=== PATIENT | male | born 1985 | race Caucasian/White ===

== ENCOUNTER 2016-10-07 07:12 | Emergency (ER) | payer BC ==
[2016-10-07] MEDS ORDERED: Sodium Chloride 0.9% 1,000 ML IV ONE (07:42)
[2016-10-07] MEDS ORDERED: Sodium Chloride 0.9% 1,000 ML ONE (07:47)
[2016-10-07 07:57] LABS: BASO % 0.6 % (0.0-2.0); EOS # 0.2 K/uL (0.0-0.7); EOS % 2.3 % (0.0-4.0); HEMOGLOBIN 14.5 g/dL (12.0-18.0); LYMPH # 2.3 K/uL (1.0-4.3); LYMPH % 29.1 % (20.0-40.0); MEAN CELL VOLUME 86.9 fL (80.0-94.0); MEAN CORPUSCULAR HGB CONC 33.4 g/dL (33.0-37.0); MEAN PLATELET VOLUME 9.4 fL (7.2-11.7); MONO # 0.7 K/uL (0.0-0.8); MONO % 8.8 % (0.0-10.0); NEUT # 4.6 K/uL (1.8-7.0); NEUT % 59.2 % (50.0-75.0); RBC 4.98 Mil/uL (4.40-5.90); WHITE BLOOD COUNT 7.8 K/uL (4.8-10.8)
[2016-10-07 08:04] LABS: ALBUMIN 4.1 g/dL (3.5-5.0)
[2016-10-07 08:06] LABS: GFR AFRICAN-AMERICAN > 60; GFR NON-AFRICAN AMERICAN > 60
[2016-10-07 08:07] LABS: ALB/GLOB RATIO 1.3 (1.0-2.1); ALT/SGPT 14 U/L (21-72); AST/SGOT 18 U/L (17-59); BLOOD UREA NITROGEN 12 mg/dL (9-20); CALCIUM 8.9 mg/dl (8.6-10.4); LIPASE 80 U/L (23-300)
--- NOTE | 2016-10-07 08:23 | C.PDOC ---
History Of Present Illness 31 y/o male presents to the ED for evaluation of constant, non-radiating right flank pain associated with nausea, and vomiting since this morning at 5:00. Pt reports having similar symptoms in the past when he was diagnosed with a kidney stone. Otherwise, patient denies fever, hematuria/dysuria, diarrhea, abdominal pain. Time Seen by Provider: 10/07/16 07:21 Chief Complaint (Nursing): Back Pain History Per: Patient History/Exam Limitations: no limitations Onset/Duration Of Symptoms: Hrs (3), Persistent Current Symptoms Are (Timing): Still Present Quality Of Discomfort: "Pain" Severity: Moderate Associated Symptoms: None. denies: Incontinence, New Weakness, New Numbness Exacerbating Factor(s): Nothing Additional History Per: Patient Past Medical History Reviewed: Historical Data, Nursing Documentation, Vital Signs Vital Signs: Last Vital Signs Temp 97.5 F L 10/07/16 07:18 Pulse 72 10/07/16 10:00 Resp 16 10/07/16 10:00 BP 102/68 10/07/16 10:00 Pulse Ox 98 10/07/16 10:00 - Medical History PMH: No Chronic Diseases Surgical History: Appendectomy Family History: States: No Known Family Hx - Social History Hx Alcohol Use: Yes Hx Substance Use: No - Immunization History Hx Tetanus Toxoid Vaccination: No Hx Influenza Vaccination: Yes Hx Pneumococcal Vaccination: No Review Of Systems Except As Marked, All Systems Reviewed And Found Negative. Constitutional: Negative for: Fever, Chills Cardiovascular: Negative for: Chest Pain, Palpitations Respiratory: Negative for: Cough, Shortness of Breath Gastrointestinal: Positive for: Nausea, Vomiting. Negative for: Diarrhea, Constipation Genitourinary: Negative for: Dysuria, Frequency, Hematuria Musculoskeletal: Positive for: Back Pain (right flank) Physical Exam - Physical Exam Appears: Well, Non-toxic, Other (In moderate painf, restless, uncomfortable) Skin: Normal Color, Warm, Dry Head: Normacephalic Eye(s): bilateral: Normal Inspection Oral Mucosa: Moist Neck: Supple Cardiovascular: Rhythm Regular, Murmur Respiratory: Normal Breath Sounds, No Accessory Muscle Use, No Rales, No Rhonchi , No Wheezing Gastrointestinal/Abdominal: Bowel Sounds, Soft, Tenderness (right periumbilical TTP), No Guarding, No Rebound, Other ((-) McBurney's, (-) Rovsing's) Back: CVA Tenderness (right), No Vertebral Tenderness Extremity: Normal ROM Neurological/Psych: Oriented x3 ED Course And Treatment - Laboratory Results Result Diagrams: 10/07/16 07:53 10/07/16 07:53 O2 Sat by Pulse Oximetry: 100 (on RA) Pulse Ox Interpretation: Normal - CT Scan/US CT ABD/PELVIS Other Rad Studies (CT/US): Read By Radiologist, Radiology Report Reviewed CT/US Interpretation: Accession No. : [id number]. Patient Name / ID : DENISSE SALVADOR / [id number]. Exam Date : 10/07/2016 08:05:59 ( Approved ). Study Comment : Sex / Age : M / 31Y. Creator : Roger Dunlap MD. Dictator : Roger Dunlap MD. Corporate Physical Security Supervisor : Cloud Automation Tester : Roger Dunlap MD. Approver2 : Report Date : 10/07/2016 08:37:00. My Comment : . CT abdomen and pelvis. History: Right flank pain. Comparison: None available. Technique : Multiple contiguous axial images were performed through the abdomen and pelvis without the use of intravenous contrast. Subsequently, sagittal and coronal reformatted images were obtained. Findings: Minimal atelectasis at the lung bases. Liver and gallbladder are preserved. Spleen is preserved. Adrenal glands are preserved. Pancreas is preserved. Upper abdominal bowel is preserved. Right kidney: Moderate right renal hydroureteronephrosis with an obstructing 6 millimeter calculus in the proximal right ureter. Left Kidney: No calculi or hydronephrosis. Urinary bladder is preserved. Heterogeneous prostate. Fecal retention in the colon. Appendix not well identified on this noncontrast study. If there is concern for acute appendicitis, correlation with an oral and intravenous contrast enhanced study is recommended. Few shotty para-aortic and mesenteric lymph nodes. Degenerative changes in the spine. Impression: Moderate right renal hydroureteronephrosis with an obstructing 6 millimeter calculus in the proximal right ureter. Additional findings as above. Progress Note: Blood work, UA, CT Abd & pelvis ordered and reviewed. Patient was given IV NS bolus, IV toradol. CT scan confirms right sided 6mm stone. PO Flomax ordered. Reevaluation Time: 09:50 Reassessment Condition: Improved (On reassessment, patient is resting comfortably, in no current pain/distress. Explained to patient he has 6mm obstructing stone, and that there is a possibility he will not be able to pass this size of stone. Patient understands but still prefers to go home and try to pass stone- was given Rx for flomax, vicodin. Patient instructed to follow up with urology within 1 week, and he understands he should return to ED if symptoms worsen.) Disposition Counseled Patient/Family Regarding: Studies Performed, Diagnosis, Need For Followup, Rx Given - Disposition Referrals: [facility] [Outside] Poncho Odell MD [Staff Provider] - Disposition: HOME/ ROUTINE Disposition Time: 09:55 Condition: STABLE Additional Instructions: FOLLOW UP WITH UROLOGY WITHIN 1 WEEK DRINK PLENTY OF FLUIDS USE MEDICATIONS DIRECTED RETURN TO ER IF SYMPTOMS PERSIST/WORSEN Prescriptions: Hydrocodone/Acetaminophen [Hydrocodon-Acetaminophen 5-325] 1 each PO Q6 PRN #15 tablet PRN Reason: Pain, Moderate (4-7) Tamsulosin [Flomax] 0.4 mg PO DAILY #5 cap Instructions: Kidney Stones (ED), Renal Colic (ED) Print Language: TELUGU - POA Present On Arrival: None - Clinical Impression Clinical Impression: Renal colic on right side, Kidney stone on right side - Scribe Statement The provider has reviewed the documentation as recorded by the Narendraibe Analia Astudillo All medical record entries made by the Narendraibbarb were at my direction and personally dictated by me. I have reviewed the chart and agree that the record accurately reflects my personal performance of the history, physical exam, medical decision making, and the department course for this patient. I have also personally directed, reviewed, and agree with the discharge instructions and disposition.
--- NOTE | 2016-10-07 08:38 | CT ---
CT abdomen and pelvis History: Right flank pain. Comparison: None available. Technique: Multiple contiguous axial images were performed through the abdomen and pelvis without the use of intravenous contrast. Subsequently, sagittal and coronal reformatted images were obtained. Findings: Minimal atelectasis at the lung bases. Liver and gallbladder are preserved. Spleen is preserved. Adrenal glands are preserved. Pancreas is preserved. Upper abdominal bowel is preserved. Right kidney: Moderate right renal hydroureteronephrosis with an obstructing 6 millimeter calculus in the proximal right ureter. Left Kidney: No calculi or hydronephrosis. Urinary bladder is preserved. Heterogeneous prostate. Fecal retention in the colon Appendix not well identified on this noncontrast study. If there is concern for acute appendicitis, correlation with an oral and intravenous contrast enhanced study is recommended. Few shotty para-aortic and mesenteric lymph nodes. Degenerative changes in the spine. Impression: Moderate right renal hydroureteronephrosis with an obstructing 6 millimeter calculus in the proximal right ureter. Additional findings as above.
[2016-10-07 08:47] VITALS: TEMP 97.5
[2016-10-07 09:38] LABS: SQUAMOUS EPITHIAL < 1 /hpf (0-5); URINE BILIRUBIN NEGATIVE (NEGATIVE); URINE BLOOD 3+ (NEGATIVE); URINE COLOR Yellow (YELLOW); URINE GLUCOSE (UA) NORMAL (Normal); URINE LEUKOCYTE ESTERASE NEG Leu/uL (Negative); URINE NITRATE NEGATIVE (NEGATIVE); URINE PROTEIN NEGATIVE (NEGATIVE); URINE UROBILINOGEN NORMAL mg/dL (0.2-1.0)
[2016-10-07 09:41] LABS: URINE CLARITY SLHAZY (Clear)
[2016-10-07 10:00] VITALS: BP 102/68; PULSE 72; RESP 16
[2016-10-16 12:57] VITALS: O2SAT 100
== END 2016-10-07 10:00 | disposition home or self-care (01) ==
LOC: C.ER 07:12
DX: N13.2 Hydronephrosis with renal and ureteral calculous obstruction (principal)
CPT/HCPCS: 74176; 80053; 81001; 83690; 85025; 87086; 96361; 96374; 99284; J1885; J7040